=== PATIENT | female | born 1950 | race Caucasian/White ===

== ENCOUNTER 2022-03-24 02:45 | Emergency (ER) | payer MEDICARE, OTHER ==
[2022-03-24] MEDS ORDERED: Alum Hydrox/Mag Hydrox/Simeth 30 ML, Lidocaine 2% 15 ML PO ONE ×2 (03:10)
[2022-03-24 03:20] LABS: CHLORIDE,CL 107 mEq/L (98-106); ESTIMATED GFR > 60 mL/min (>=60); SODIUM,NA 143 mEq/L (136-145)
[2022-03-24] MEDS ORDERED: Iopamidol 755 Mg/ML 100 ML Bottle IVPUSH ONE (04:26)
== END 2022-03-24 05:33 | disposition home or self-care (01) ==
LOC: CC.ED 02:45
DX: K44.9 Diaphragmatic hernia without obstruction or gangrene (principal); K21.9 Gastro-esophageal reflux disease without esophagitis; Z88.8 Allergy status to other drugs, medicaments and biological substances; Z79.899 Other long term (current) drug therapy
CPT/HCPCS: 36415; 74177; 80053; 82150; 83690; 83735; 84484; 85025; 86140; 93005; 99283; 99284-25; A9270-GY; Q9967

== ENCOUNTER → 2022-12-08 | Day surgery (SDC) | payer MEDICARE, OTHER ==
[~2022-12-08] MED LIST: Lidocaine 2% 5 ML SDV ONE; Midazolam 1 MG/ML 2 ML SDV ONE; Propofol 200 MG/20 ML SDV ONE; ePHEDrine 50 MG/ML SDV ONE; fentaNYL 50 MCG/ML SDV ONE
[2022-12-08] MEDS: Lactated Ringers 1,000 ML IV SCH (09:00)
== END ==
LOC: CC.SDS 08:13
PROVIDERS: ATTEND Family Medicine
DX: K29.50 Unspecified chronic gastritis without bleeding (principal); K29.80 Duodenitis without bleeding; D50.9 Iron deficiency anemia, unspecified; K21.9 Gastro-esophageal reflux disease without esophagitis; Z79.899 Other long term (current) drug therapy; M17.9 Osteoarthritis of knee, unspecified; Z88.5 Allergy status to narcotic agent; Z88.8 Allergy status to other drugs, medicaments and biological substances
CPT/HCPCS: 36415; 80048; 85025; 87081; 88305; 88342; J2250; J2704; J3010; J3490; J7120

== ENCOUNTER → 2023-01-26 | Day surgery (SDC) | payer MEDICARE, OTHER ==
[~2023-01-26] MED LIST changes: +Lactated Ringers 1,000 ML IV SCH; -Lidocaine 2% 5 ML SDV ONE; -Midazolam 1 MG/ML 2 ML SDV ONE; -Propofol 200 MG/20 ML SDV ONE; -ePHEDrine 50 MG/ML SDV ONE; -fentaNYL 50 MCG/ML SDV ONE
== END ==
LOC: CC.SDS 09:09
PROVIDERS: ATTEND Family Medicine
DX: K31.89 Other diseases of stomach and duodenum (principal); K21.00 Gastro-esophageal reflux disease with esophagitis, without bleeding; K44.9 Diaphragmatic hernia without obstruction or gangrene; D50.9 Iron deficiency anemia, unspecified; Z87.19 Personal history of other diseases of the digestive system; Z88.5 Allergy status to narcotic agent; Z88.8 Allergy status to other drugs, medicaments and biological substances; Z79.899 Other long term (current) drug therapy
CPT/HCPCS: 00731; 87081; 88305; J7120

== ENCOUNTER → 2023-04-26 | Day surgery (SDC) | payer MEDICARE, OTHER ==
[~2023-04-26] MED LIST changes: +Dexamethasone 4 MG/ML SDV ONE; +Glycopyrrolate 0.2 MG/ML SDV ONE; +HYDROmorphone 1 MG/ML Syringe ONE; +Ketamine 200 MG/20 ML MDV ONE; +Ketorolac 30 MG/ML SDV ONE; +Lidocaine 2% 20 ML MDV ONE; +Midazolam 1 MG/ML 2 ML SDV ONE; +Morphine 4 MG/ML VIAL IV PRN; +Neostigmine Methylsulfate 10 MG/10 ML MDV ONE; +Ondansetron 4 MG/2 ML SDV IVPUSH PRN; +Ondansetron 4 MG/2 ML SDV ONE; +Phenylephrine 1% 10 MG/ML SDV ONE; +Propofol 200 MG/20 ML SDV ONE; +Sodium Chloride 0.9% 10 ML Syringe FLUSH PRN; +Succinylcholine 200 MG/10 ML MDV ONE; +ceFAZolin 2 GM Vial IVPUSH ONE; +fentaNYL 50 MCG/ML SDV ONE
[2023-04-26] MEDS: Acetaminophen/oxyCODONE 325-5 MG Tab PO PRN ×2 (15:25→23:17)
== END | disposition home or self-care (01) ==
LOC: CC.SDS 07:43
PROVIDERS: ATTEND Surgery
DX: K44.9 Diaphragmatic hernia without obstruction or gangrene (principal); I10 Essential (primary) hypertension; K21.9 Gastro-esophageal reflux disease without esophagitis; M19.90 Unspecified osteoarthritis, unspecified site; M81.0 Age-related osteoporosis without current pathological fracture; D50.9 Iron deficiency anemia, unspecified; Z88.5 Allergy status to narcotic agent; Z88.6 Allergy status to analgesic agent; Z79.899 Other long term (current) drug therapy
CPT/HCPCS: A9270-GY; J0330; J0690; J1100; J1170; J1885; J2250; J2370; J2405; J2704; J2710; J3010; J3490; J7030; J7120